=== PATIENT | female | born 2000 | race Caucasian/White ===

== ENCOUNTER 2023-08-04 16:21 | Inpatient (IN) | payer MEDICAID, SELFPAY ==
[2023-08-04 16:33] VITALS: BP 107/68; PULSE 90; RESP 16; TEMP 36.5; O2SAT 97
[2023-08-04 16:42] VITALS: BMI 23.2
--- NOTE | 2023-08-04 17:11 | PC.ADMIT ---
1718 [facility] Admission Note: The patient,Melissa Norwood,22 y/o, was given written information regarding hospital policies, unit procedures and contact persons. Patient's smoking status: . Vital Signs - 8 hr 08/04/23 16:33 08/04/23 16:33 08/04/23 16:35 Temperature 97.7 F Pulse Rate 90 Respiratory Rate 16 Blood Pressure 107/68 Pulse Oximetry 97 Oxygen Delivery Method Room Air Room Air Room Air ADMITTED FROM [facility] TRAN[facility]ORT [facility]AN AT 1619. PT STATES SHE IS HERE DUE TO SNAPPING OUT AND TRYING TO JUMP OUT OF CAR AFTER NOT TAKING MY ANTI-DEPRESSANT FOR TWO WEEKS. MERCY STATES THAT HER 5 MONTH OLD DAUGHTER AND BOYFRIEND WERE IN THE CAR WHEN PT ATTEMPTED TO JUMP OUT. PT AND [facility] STAFF REPORT THAT PATIENT IS 6 WEEKS . PT REPORTS THAT SHE WAS STARTED ON ZOLOFT 25 MG A MONTH AGO AND RAN OUT OF MEDS 2 WEEKS AGO. DENIES SI/HI AND AVH AT THIS. DENIES PAIN. RATES ANXIETY 4/10 AND DEPRESSION 2/10. REPORTS NKDA. PT IS VOLUNTARY WITH AN AFFIDAVIT. PT LIVES WITH HER BOYFRIEND AND WILL DISCHARGE BACK HOME WITH HIM AND BABY WHEN SHE IS DISHARGED. PT STATES THIS IS HER FIRST PSYCHIATRIC ADMISSION. STATES SHE USE TO CUT WHEN I WAS A TEENAGER BUT HAVEN'T IN A FEW YEARS. ORIENTATED TO UNIT. SNACK AND DRINK OFFERED. ALL QUESTIONS ANSWERED AND SUPPORT VOICED.
[2023-08-04 17:45] LABS: HCG Qualitative Urine. Positive (Negative)
--- NOTE | 2023-08-04 18:04 | PC.NURSE ---
NEW ORDERS FOR HCG QUANTITATIVE URINE TEST WAS RECEIVED FROM DR. ALMAZAN TO CONFIRM DUE TO [place] NOT HAVING TEST IN THEIR RECORDS. TEST WAS POSITIVE..
[2023-08-04 19:33] VITALS: BP 107/66; PULSE 87; RESP 14; TEMP 36.6; O2SAT 100
[2023-08-05 06:00] VITALS: BP 105/67; PULSE 98; RESP 16; TEMP 36.7; O2SAT 98
[2023-08-05] MEDS: sertraline 50 mg Tablet 25 MG PO (13:20)
[2023-08-05 14:00] VITALS: BP 107/73; PULSE 77; RESP 20; TEMP 36.8; O2SAT 98
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
[2023-08-05] MEDS: omega-3 fatty acids 1,000 mg Capsule 1000 MG PO (18:14)
--- NOTE | 2023-08-05 18:26 | PC.NURSE ---
ROOM SEARCHED BY STAFF NO CONTRABAND FOUND.
[2023-08-05 19:34] VITALS: BP 111/72; PULSE 80; RESP 17; TEMP 36.6; O2SAT 99
[2023-08-06 06:00] VITALS: BP 111/63; PULSE 68; RESP 16; TEMP 36.6; O2SAT 99
[2023-08-06] MEDS: omega-3 fatty acids 1,000 mg Capsule 1000 MG PO ×2 (09:16→18:16)
[2023-08-06] MEDS: PRENATAL VIT NO.130/IRON/FOLIC 1 EACH TABLET PO (09:17)
[2023-08-06] MEDS: sertraline 50 mg Tablet 25 MG PO (09:17)
--- NOTE | 2023-08-06 09:21 | PC.NURSE ---
During morning assessment, patient stated that she is feeling better today. Patient denies anxiety, depression, SI, HI, AVH. Patient denies any pain, or any needs at this time.
[2023-08-06 14:00] VITALS: BP 126/76; PULSE 82; RESP 16; TEMP 36.6; O2SAT 99
--- NOTE | 2023-08-06 18:12 | P.NPUPN_ITS ---
Subjective NPU Subjective: 22-year-old white female admitted with p anic attacks, social anxiety disorder and major depressive disorder with suicidal ideation. The patient is 7 weeks . She had reported that she was feeling better. She had reported feeling more optimistic about the future. She reported good concentration. She reported poor appetite still. She was more engaged on the milieu today and was able to attend groups. She had reported no side effects from her Zoloft at this time. Patient had indicated having significant depression and reported continued interest with taking high-dose omega fatty acids for managing and protecting the patient from depression that it particularly worsened less than a year ago. Mental Status Exam MSE Comments: She is a casually dressed 22-year-old white female who appeared her stated age. Her gait was within normal limits. Her hygiene was fair. There was no evidence of any abnormal involuntary motor movements tics or tremors appreciated. Her speech was normal in regards to rate, rhythm and prosody. She was alert and oriented to person place time and situation. There was evidence of mild psychomotor retardation appreciated. Her mood was described as better today. Her affect appeared mood congruent and less restricted today. Her thought process was linear logical and goal-directed. Her thought content showed no ev idence of suicidal ideation. She denied any active plan. She endorsed a sense of hopelessness and worthlessness. She denied any homicidal thoughts. She did not appear to be responding to internal stimuli. There was no clear evidence of delusional thinking. Her attention span appeared fair. Her insight was poor. Her judgment was poor. Her impulse control appeared limited. Vitals/I&O/Wt Last Vital Signs Temp 98 F 08/06/23 14:00 Pulse 82 08/06/23 14:00 Resp 16 08/06/23 14:00 BP 126/76 08/06/23 14:00 Pulse Ox 99 08/06/23 14:00 O2 Del Method Room Air 08/05/23 19:34 A&P Assessment and plan (1) Major depressive disorder, recurrent severe without psychotic features: (2) Social anxiety disorder: (3) Panic attacks: Plan 22-year-old white female who presented with depression and an increase in suicidal ideation with increased stress at home as she has a 5-month-old baby at home for which she is the primary caregiver. Her depression has been exacerbated by continued difficulties with her boyfriend in their home. #1.? Engage patient in individual milieu and group therapy. #2?? TO-15 minute checks #3?? Referral for psychotherapy. #4 Increase zoloft to 50mg daily. [place] FA 1000mg bid. ? Involuntary Hold Information 96 Hour Hold: 96 Hour Involuntary Admission: No Attestations NPU Medical Necessity Statement*: Inpatient hospitalization is medically necessary and deemed to ?be ?the clinically appropriate intervention ?at this time.? We will monitor/initiate medications and make changes as indicated.? ? The patient?s likely length of stay 1-2 days. Coding Level of Care Code Acute Code for Chg Fwd Diagnoses Major depressive disorder, recurrent severe without psychotic features F33.2 Social anxiety disorder F40.10 Panic attacks F41.0
[2023-08-06 20:08] VITALS: BP 108/66; PULSE 80; RESP 15; TEMP 36.9; O2SAT 98
[2023-08-07 06:00] VITALS: BP 104/67; PULSE 79; RESP 15; O2SAT 98
[2023-08-07] MEDS: PRENATAL VIT NO.130/IRON/FOLIC 1 EACH TABLET PO (07:57)
[2023-08-07] MEDS: sertraline 50 mg Tablet PO (07:57)
[2023-08-07] MEDS: omega-3 fatty acids 1,000 mg Capsule 1000 MG PO (07:58)
[2023-08-07 12:43] VITALS: BP 124/94; PULSE 89; RESP 16; O2SAT 95
[2023-08-07 12:46] VITALS: BP 124/94; PULSE 89; RESP 16; O2SAT 95
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
== END 2023-08-07 14:00 | disposition home or self-care (01) | DRG 885 ==
PROVIDERS: Admitting Provider Psychiatry & Neurology Psychiatry; PCP Obstetrics & Gynecology; Visit Provider Psychiatry & Neurology Psychiatry
DX: F33.2 Major depressive disorder, recurrent severe without psychotic features (principal); R45.851 Suicidal ideations; F40.10 Social phobia, unspecified; F41.0 Panic disorder [episodic paroxysmal anxiety]; Z33.1 Pregnant state, incidental; Z63.0 Problems in relationship with spouse or partner
CPT/HCPCS: 81025; 97150; 97165